=== PATIENT | male | born 1965 | race African-American/Black ===

== ENCOUNTER 2020-03-27 12:30 | Inpatient (IN) | payer OTHER ==
--- NOTE | 2020-03-27 12:50 | BHS.RME ---
Substance Use & Tx History - Substance Use History Alcohol Substance amount: 6 x 24 ounce beer daily, one pint rum less than 3 days per week Frequency of use: Daily Substance route: Oral Date of Last Use: 03/27/20 Cocaine-Crack Substance amount: 2 bags Frequency of use: Daily Substance route: Smoking Date of Last Use: 03/26/20 Nicotine Substance amount: 3 cigs Frequency of use: Daily Substance route: Smoking Date of Last Use: 03/27/20 - Last Treatment Date of last treatment: first PC Physical/Psych/Mental Status - Behavior General Behavior: Increased activity (restlessness, agitation) Eye Contact: Normal - Cooperativeness Cooperativeness: Cooperative - Thinking Thought Processes: Tight Thought content: Future oriented - Physical Health Problems Is patient presently having any pain?: Yes (right shoulder pain for 3 mos) Does patient presently have any injuries (include location): No Does patient currently have a fever: No CIWA Nausea/Vomitin-Mild Nausea/No Vomiting Muscle Tremors: 3 Anxiety: 3 Agitation: 1-Slight > Activity Paroxysmal Sweats: 1-Minimal Palms Moist Orientation: 2-Disoriented Date<2 days Tacttile Disturbances: 0-None Auditory Disturbances: 1-Very Mild Visual Disturbances: 0-None Headache: 0-None Present CIWA-Ar Total Score: 12
[2020-03-27 13:33] VITALS: BMI 24.0
--- NOTE | 2020-03-27 13:45 | HP ---
CIWA Score Nausea/Vomitin-Mild Nausea/No Vomiting Muscle Tremors: 3 Anxiety: 3 Agitation: 1-Slight > Activity Paroxysmal Sweats: 1-Minimal Palms Moist Orientation: 2-Disoriented Date<2 days Tacttile Disturbances: 0-None Auditory Disturbances: 1-Very Mild Visual Disturbances: 0-None Headache: 0-None Present CIWA-Ar Total Score: 12 - Admission Criteria [facility] Guidelines: Admission for Medically Managed Detox: Requires at least one of the followin. CIWA greater than 12 2. Seizures within the past 24 hours 3. Delirium tremens within the past 24 hours 4. Hallucinations within the past 24 hours 5. Acute intervention needed for co occurring medical disorder 6. Acute intervention needed for co occurring psychiatric disorder 7. Severe withdrawal that cannot be handled at a lower level of care (continued vomiting, continued diarrhea, abnormal vital signs) requiring intravenous medication and/or fluids 8. Patient presents the following: CIWA greater than 12 Admission Criteria Met: Admission criteria met Admitting History and Physical - Admission Chief Complaint: alcohol detox - Past Medical History Endocrine: Yes: Diabetes Mellitus (does not use meds) - Smoking History Smoking history: Current every day smoker Aproximately how many cigarettes per day: 4 Admission ROS S - HPI Chief Complaint: alcohol detox and cocaine use Allergies/Adverse Reactions: Allergies Allergy/AdvReac Type Severity Reaction Status Date / Time No Known Allergies Allergy Verified 03/27/20 13:00 History of Present Illness: 55 yo with c/o R shoulder pain (fell 3 months ago), says was told he had diabetes in the past but has not used medications, would like to be abstinent from alcohol and cocaine use. alcohol use: 1-6 packs of beer, no h/o seizures no h/o DT's THC- 1 bag/day crack/cocaine- 2-3 rocks a day ($60/day) KALYANI- 0 Utox: THC and siddharth - Review of Systems Constitutional: No Symptoms Reported EENT: reports: No Symptoms Reported Respiratory: reports: No Symptoms reported Cardiac: reports: No Symptoms Reported GI: reports: No Symptoms Reported Musculoskeletal: reports: Other (r shoulder pain- says has difficulty lifting arm up, says he had trauma about 3 months ago) Integumentary: reports: No Symptoms Reported Neuro: reports: No Symptoms reported Endocrine: reports: No Symptoms Reported Hematology: reports: No Symptoms Reported Psychiatric: reports: No Sypmtoms Reported Patient History - Patient Medical History Hx Asthma: No Hx Chronic Obstructive Pulmonary Disease (COPD): No Hx Cardiac Disorders: No Hx Hypertension: No Hx Seizures: No Hx Diabetes: Yes (in the past does not use meds) Hx Gastrointestinal Disorders: No Hx Genitourinary Disorders: No Hx Sexually Transmitted Disorders: No Hx Renal Disease (ESRD): No Hx Depression: No Hx Schizophrenia: No - Patient Surgical History Past Surgical History: No Hx Neurologic Surgery: No Hx Cataract Extraction: No Hx Cardiac Surgery: No Hx Lung Surgery: No Hx Breast Surgery: No Hx Breast Biopsy: No Hx Abdominal Surgery: No Hx Appendectomy: No Hx Cholecystectomy: No Hx Genitourinary Surgery: No Hx Section: No Hx Orthopedic Surgery: Yes (left forearm and numerous fx., ) Anesthesia Reaction: No - Reproductive History Patient : (n/a) - Smoking Cessation Smoking history: Current every day smoker Aproximately how many cigarettes per day: 4 Cigars Per Day: 0 Hx Chewing Tobacco Use: No Initiated information on smoking cessation: Yes 'Breaking Loose' booklet given: 03/27/20 - Substance & Tx. History Hx Alcohol Use: Yes Substance Use Type: Alcohol, Cocaine - Substances abused Alcohol Substance route: Oral Frequency: Daily Age of first use: 30 Date of last use: 03/26/20 Cocaine Substance route: Smoking Frequency: Daily Admission Physical Exam BHS - Vital Signs Vital Signs: Vital Signs - 24 hr 03/27/20 13:29 Temperature 98 F Pulse Rate 94 H Respiratory 20 Rate Blood Pressure 144/95 - Physical General Appearance: Yes: Within Normal Limits HEENTM: Yes: Within Normal Limits Respiratory: Yes: Within Normal Limits Neck: Yes: Within Normal Limits Cardiology: Yes: Within Normal Limits, Regular Rhythm Abdominal: Yes: Within Normal Limits, Non Tender, Flat Genitourinary: Yes: Within Normal Limits Back: Yes: Within Normal Limits Musculoskeletal: Yes: Other (R shoulder pain when lifting arm and pain on top of R shoulder with palpation. no swelling, redness) Extremities: Yes: Within Normal Limits Neurological: Yes: Within Normal Limits Integumentary: Yes: Within Normal Limits - Diagnostic (1) Alcohol use disorder Current Visit: Yes Status: Acute (2) Cocaine use disorder Current Visit: Yes Status: Acute (3) Shoulder pain, right Current Visit: Yes Status: Acute Breathalyzer - Breathalyzer Breathalyzer: 0 Urine Drug Screen - Test Device Lot number: [id number] Expiration date: 10/09/21 - Control Is test valid?: Yes - Results Drug screen NEGATIVE: No Urine drug screen results: THC-Marijuana, SIDDHARTH-Cocaine Inpatient Rehab Admission - Rehab Decision to Admit Inpatient rehab admission?: No
[2020-03-27] MEDS ORDERED: ONDANSETRON *ODT* 4 MG TABLET SL PRN (13:54)
[2020-03-27] MEDS ORDERED: MAGNESIUM HYDROX 2400MG/30ML ORAL SUSPENSION 30 ML CUP PO PRN (13:54)
[2020-03-27] MEDS ORDERED: IBUPROFEN 400 MG TABLET (FP) PO PRN (13:54)
[2020-03-27] MEDS ORDERED: BISMUTH SUBSALICYLATE 262 MG/15 ML BTL PO PRN (13:54)
[2020-03-27] MEDS ORDERED: MAG HYDROX/AL HYDROX/SIMETH 30 ML UNIT-DOSE CUP PO PRN (13:54)
[2020-03-27] MEDS ORDERED: MAGNESIUM CITRATE 300 ML BOTTLE PO PRN (13:54)
[2020-03-27] MEDS ORDERED: ACETAMINOPHEN 325 MG TABLET (FP) PO PRN ×2 (13:54)
[2020-03-27] MEDS ORDERED: MENTHOL/PHENOL 1 EACH UD MM PRN (13:54)
[2020-03-27] MEDS ORDERED: NICOTINE POLACRILEX 2 MG GUM BUC PRN (13:54)
[2020-03-27] MEDS ORDERED: chlordiazePOXIDE HCL 25 MG CAPSULE PO PRN (13:57)
[2020-03-27] MEDS ORDERED: hydrOXYzine PAMOATE 25 MG CAPSULE (FP) PO SCH (14:00)
[2020-03-27] MEDS: chlordiazePOXIDE HCL 25 MG CAPSULE PO SCH ×2 (18:11→22:47)
[2020-03-27] MEDS ORDERED: INSULIN (NOVOLOG) ASPART 100 UNITS/ML 10ML VIAL SQ ONE (18:15)
[2020-03-27] MEDS: MELATONIN 5 MG TABLETS PO SCH (22:47)
[2020-03-27] MEDS: THIAMINE HCL 100 MG TABLET (FP) PO SCH (22:47)
[2020-03-27] MEDS: INSULIN SLIDING SCALE (NOVOLOG) 1 VIAL SQ SCH (22:50)
[2020-03-28] MEDS: chlordiazePOXIDE HCL 25 MG CAPSULE PO SCH (06:03)
[2020-03-28] MEDS: metFORMIN HCL 500 MG TABLET (FP) PO SCH (06:04)
[2020-03-28] MEDS: INSULIN SLIDING SCALE (NOVOLOG) 1 VIAL SQ SCH ×4 (08:01→22:35)
[2020-03-28] MEDS ORDERED: diazePAM 5 MG TABLET PO PRN (10:05)
[2020-03-28 10:19] LABS: HEMOGLOBIN 16.6 GM/dL (11.7-16.9); MCH 31.2 pg (25.7-33.7); MCHC 33.8 g/dl (32.0-35.9); MEAN CELL VOLUME 92.1 fl (80-96); MEAN PLT VOLUME 8.1 fl (7.5-11.1); PLATELET COUNT 344 K/MM3 (134-434); RBC 5.32 M/mm3 (4.00-5.60); RDW 13.8 % (11.9-15.9); WHITE BLOOD COUNT 8.8 K/mm3 (4.0-10.0)
[2020-03-28 10:22] LABS: ALBUMIN 3.8 g/dl (3.4-5.0); BLOOD UREA NITROGEN 17.7 mg/dL (7-18); CALCIUM 10.2 mg/dL (8.5-10.1); CREATININE 1.1 mg/dL (0.55-1.3); POTASSIUM 4.4 mmol/L (3.5-5.1)
[2020-03-28 10:24] LABS: BILIRUBIN,TOTAL 1.1 mg/dL (0.2-1); TOT PROT 7.6 g/dl (6.4-8.2)
--- NOTE | 2020-03-28 10:32 | EKG ---
Test Reason : Blood Pressure : / mmHG Vent. Rate : 090 BPM Atrial Rate : 090 BPM P-R Int : 174 ms QRS Dur : 100 ms QT Int : 364 ms P-R-T Axes : 068 068 026 degrees QTc Int : 445 ms NORMAL SINUS RHYTHM NONSPECIFIC INTRAVENTRICULAR CONDUCTION DEFECT NO PREVIOUS ECGS AVAILABLE Confirmed by ZAHIRA DE LA ROSA MD ([id number]) on 03/28/2020 10:31:49 AM Referred By: Confirmed By:ZAHIRA DE LA ROSA MD
[2020-03-28] MEDS: PRENATAL VITAMINS W/ FOLIC ACID TABLET (FP) PO SCH (10:56)
[2020-03-28] MEDS: LIDOCAINE 5% TOPICAL PATCH TP SCH (10:56)
[2020-03-28] MEDS: METHOCARBAMOL 500 MG TABLET PO PRN (13:56)
[2020-03-28] MEDS: IBUPROFEN 400 MG TABLET (FP) PO PRN ×2 (13:56→22:36)
--- NOTE | 2020-03-28 15:02 | PN ---
[facility] CIWA - CIWA Score Nausea/Vomitin-No Nausea/No Vomiting Muscle Tremors: 3 Anxiety: 2 Agitation: 3 Paroxysmal Sweats: 3 Orientation: 0-Oriented Tacttile Disturbances: 0-None Auditory Disturbances: 0-None Visual Disturbances: 0-None Headache: 0-None Present CIWA-Ar Total Score: 11 S Progress Note (SOAP) Subjective: the medication is making me feel more drunk sweats dizzy groggy sleepy my right shoulder is really hurting, I fell months ago and never went to hospital to get it checked out. Objective: 03/28/20 15:02 Vital Signs Temperature 97.8 F 03/28/20 12:31 Pulse Rate 91 H 03/28/20 12:31 Respiratory Rate 18 03/28/20 12:31 Blood Pressure 127/83 03/28/20 12:31 O2 Sat by Pulse Oximetry (%) 98 03/28/20 12:31 Laboratory Tests 03/27/20 03/27/20 03/28/20 16:56 22:46 06:02 WBC RBC Hgb Hct MCV MCH MCHC RDW Plt Count MPV Sodium Potassium Chloride Carbon Dioxide Anion Gap BUN Creatinine Est GFR (CKD-EPI)AfAm Est GFR (CKD-EPI)NonAf POC Glucometer 409 302 196 Random Glucose Calcium Total Bilirubin AST ALT Alkaline Phosphatase Total Protein Albumin Syphilis Serology HIV Ag/Ab Combo Qual 03/28/20 03/28/20 03/28/20 08:00 08:00 08:00 WBC 8.8 RBC 5.32 Hgb 16.6 Hct 49.0 MCV 92.1 MCH 31.2 MCHC 33.8 RDW 13.8 Plt Count 344 MPV 8.1 Sodium Potassium Chloride Carbon Dioxide Anion Gap BUN Creatinine Est GFR (CKD-EPI)AfAm Est GFR (CKD-EPI)NonAf POC Glucometer Random Glucose Calcium Total Bilirubin AST ALT Alkaline Phosphatase Total Protein Albumin Syphilis Serology Non-reactive HIV Ag/Ab Combo Qual Negative 03/28/20 08:00 WBC RBC Hgb Hct MCV MCH MCHC RDW Plt Count MPV Sodium 136 Potassium 4.4 Chloride 99 Carbon Dioxide 29 Anion Gap 7 L BUN 17.7 Creatinine 1.1 Est GFR (CKD-EPI)AfAm 87.13 Est GFR (CKD-EPI)NonAf 75.17 POC Glucometer Random Glucose 306 H Calcium 10.2 H Total Bilirubin 1.1 H AST 10 L ALT 13 Alkaline Phosphatase 111 Total Protein 7.6 Albumin 3.8 Syphilis Serology HIV Ag/Ab Combo Qual labs noted aaox3 ambulating no acute distress pt is currently on insulin s/s and hyperglycemia medication Assessment: 03/28/20 15:05 withdrawals pt is able to shrug shoulders, pt is unable to raise arm over his head. no swelling noted to shoulder area Plan: continue detox with different regimen pt made aware and in agreement shoulder x-ray ordered r/o fracture analgesic balm motrin 800mg prn
[2020-03-28] MEDS: diazePAM 5 MG TABLET PO SCH ×2 (17:40→22:36)
[2020-03-28] MEDS: NICOTINE 14 MG/24 HOURS TOPICAL PATCH TD SCH (17:44)
[2020-03-28] MEDS: THIAMINE HCL 100 MG TABLET (FP) PO SCH (22:36)
[2020-03-28] MEDS: LIDOCAINE PATCH REMOVAL MC SCH (22:38)
[2020-03-28] MEDS: MELATONIN 5 MG TABLETS PO SCH (22:38)
[2020-03-29] MEDS ORDERED: chlordiazePOXIDE HCL 25 MG CAPSULE PO SCH (05:00)
[2020-03-29] MEDS: diazePAM 5 MG TABLET PO SCH ×4 (07:44→22:37)
[2020-03-29] MEDS: metFORMIN HCL 500 MG TABLET (FP) PO SCH (07:44)
[2020-03-29] MEDS: INSULIN SLIDING SCALE (NOVOLOG) 1 VIAL SQ SCH ×4 (07:46→22:37)
[2020-03-29] MEDS ORDERED: INSULIN SLIDING SCALE (NOVOLOG) 1 VIAL SQ ONE (07:47)
[2020-03-29] MEDS ORDERED: NICOTINE 14 MG/24 HOURS TOPICAL PATCH TD SCH (10:00)
[2020-03-29] MEDS: LIDOCAINE 5% TOPICAL PATCH TP SCH (11:37)
[2020-03-29] MEDS: PRENATAL VITAMINS W/ FOLIC ACID TABLET (FP) PO SCH (11:38)
[2020-03-29] MEDS: METHOCARBAMOL 500 MG TABLET PO PRN ×2 (11:38→17:39)
[2020-03-29] MEDS: NICOTINE 14 MG/24 HOURS TOPICAL PATCH TD SCH (11:39)
--- NOTE | 2020-03-29 17:49 | PN ---
S CIWA - CIWA Score Nausea/Vomitin-No Nausea/No Vomiting Muscle Tremors: 2 Anxiety: 3 Agitation: 2 Paroxysmal Sweats: No Perspiration Orientation: 0-Oriented Tacttile Disturbances: 0-None Auditory Disturbances: 0-None Visual Disturbances: 2-Mild Sensitivity Headache: 0-None Present CIWA-Ar Total Score: 9 BHS Progress Note (SOAP) Subjective: Fatigue (diminishing), Anxious, Body Aches. Patient reports That Current withdrawal Detox Symptoms in General Are Gradually Beginning to Diminish in Severity. Objective: Patient A & O X 3, Observed Ambulating on Detox Unit Unassisted. In No Acute Distress. 03/29/20 17:47 Vital Signs Temperature 97.9 F 03/29/20 12:55 Pulse Rate 85 03/29/20 12:55 Respiratory Rate 16 03/29/20 12:55 Blood Pressure 128/81 03/29/20 12:55 O2 Sat by Pulse Oximetry (%) 97 03/29/20 12:55 Laboratory Tests 03/27/20 03/27/20 03/27/20 08:00 16:56 22:46 WBC RBC Hgb Hct MCV MCH MCHC RDW Plt Count MPV Sodium Potassium Chloride Carbon Dioxide Anion Gap BUN Creatinine Est GFR (CKD-EPI)AfAm Est GFR (CKD-EPI)NonAf POC Glucometer 409 302 Random Glucose Calcium Total Bilirubin AST ALT Alkaline Phosphatase Total Protein Albumin Syphilis Serology COVID-19 ([facility]) Not detected HIV Ag/Ab Combo Qual 03/28/20 03/28/20 03/28/20 06:02 08:00 08:00 WBC RBC Hgb Hct MCV MCH MCHC RDW Plt Count MPV Sodium Potassium Chloride Carbon Dioxide Anion Gap BUN Creatinine Est GFR (CKD-EPI)AfAm Est GFR (CKD-EPI)NonAf POC Glucometer 196 Random Glucose Calcium Total Bilirubin AST ALT Alkaline Phosphatase Total Protein Albumin Syphilis Serology Non-reactive COVID-19 ([facility]) HIV Ag/Ab Combo Qual Negative 03/28/20 03/28/20 03/28/20 08:00 08:00 16:32 WBC 8.8 RBC 5.32 Hgb 16.6 Hct 49.0 MCV 92.1 MCH 31.2 MCHC 33.8 RDW 13.8 Plt Count 344 MPV 8.1 Sodium 136 Potassium 4.4 Chloride 99 Carbon Dioxide 29 Anion Gap 7 L BUN 17.7 Creatinine 1.1 Est GFR (CKD-EPI)AfAm 87.13 Est GFR (CKD-EPI)NonAf 75.17 POC Glucometer 493 Random Glucose 306 H Calcium 10.2 H Total Bilirubin 1.1 H AST 10 L ALT 13 Alkaline Phosphatase 111 Total Protein 7.6 Albumin 3.8 Syphilis Serology COVID-19 ([facility]) HIV Ag/Ab Combo Qual 03/28/20 03/29/20 03/29/20 22:31 07:43 11:41 WBC RBC Hgb Hct MCV MCH MCHC RDW Plt Count MPV Sodium Potassium Chloride Carbon Dioxide Anion Gap BUN Creatinine Est GFR (CKD-EPI)AfAm Est GFR (CKD-EPI)NonAf POC Glucometer 307 251 368 Random Glucose Calcium Total Bilirubin AST ALT Alkaline Phosphatase Total Protein Albumin Syphilis Serology COVID-19 ([facility]) HIV Ag/Ab Combo Qual 03/29/20 16:45 WBC RBC Hgb Hct MCV MCH MCHC RDW Plt Count MPV Sodium Potassium Chloride Carbon Dioxide Anion Gap BUN Creatinine Est GFR (CKD-EPI)AfAm Est GFR (CKD-EPI)NonAf POC Glucometer 251 Random Glucose Calcium Total Bilirubin AST ALT Alkaline Phosphatase Total Protein Albumin Syphilis Serology COVID-19 ([facility]) HIV Ag/Ab Combo Qual Lab Results noted. Assessment: 03/29/20 17:48 WITHDRAWAL SYMPTOMS. Plan: Continue Detox.
[2020-03-29] MEDS: THIAMINE HCL 100 MG TABLET (FP) PO SCH (22:36)
[2020-03-29] MEDS: MELATONIN 5 MG TABLETS PO SCH (22:37)
[2020-03-29] MEDS: LIDOCAINE PATCH REMOVAL MC SCH (22:37)
[2020-03-30] MEDS ORDERED: chlordiazePOXIDE HCL 10 MG CAPSULE PO PRN
[2020-03-30] MEDS ORDERED: chlordiazePOXIDE HCL 10 MG CAPSULE PO SCH (05:00)
[2020-03-30] MEDS: diazePAM 5 MG TABLET PO SCH ×3 (06:24→22:11)
[2020-03-30] MEDS: metFORMIN HCL 500 MG TABLET (FP) PO SCH (06:24)
[2020-03-30] MEDS: METHOCARBAMOL 500 MG TABLET PO PRN ×2 (06:26→22:15)
[2020-03-30] MEDS: INSULIN SLIDING SCALE (NOVOLOG) 1 VIAL SQ SCH ×4 (07:52→22:12)
[2020-03-30] MEDS: LIDOCAINE 5% TOPICAL PATCH TP SCH (10:46)
[2020-03-30] MEDS: NICOTINE 14 MG/24 HOURS TOPICAL PATCH TD SCH (10:46)
[2020-03-30] MEDS: PRENATAL VITAMINS W/ FOLIC ACID TABLET (FP) PO SCH (10:46)
--- NOTE | 2020-03-30 12:56 | PN ---
S CIWA - CIWA Score Nausea/Vomitin-No Nausea/No Vomiting Muscle Tremors: 2 Anxiety: 2 Agitation: 2 Paroxysmal Sweats: 2 Orientation: 0-Oriented Tacttile Disturbances: 0-None Auditory Disturbances: 0-None Visual Disturbances: 0-None Headache: 0-None Present CIWA-Ar Total Score: 8 BHS Progress Note (SOAP) Subjective: Complaints of sweat, tremors and anxiety. Objective: Vital Signs 03/30/20 03/30/20 06:12 08:33 Temperature 96.0 F L 97.7 F Pulse Rate 83 88 Respiratory 16 16 Rate Blood Pressure 139/97 127/87 O2 Sat by Pulse 97 Oximetry (%) Laboratory Last Values WBC 8.8 K/mm3 (4.0-10.0) 03/28/20 08:00 RBC 5.32 M/mm3 (4.00-5.60) 03/28/20 08:00 Hgb 16.6 GM/dL (11.7-16.9) 03/28/20 08:00 Hct 49.0 % (35.4-49) 03/28/20 08:00 MCV 92.1 fl (80-96) 03/28/20 08:00 MCH 31.2 pg (25.7-33.7) 03/28/20 08:00 MCHC 33.8 g/dl (32.0-35.9) 03/28/20 08:00 RDW 13.8 % (11.9-15.9) 03/28/20 08:00 Plt Count 344 K/MM3 (134-434) 03/28/20 08:00 MPV 8.1 fl (7.5-11.1) 03/28/20 08:00 Sodium 136 mmol/L (136-145) 03/28/20 08:00 Potassium 4.4 mmol/L (3.5-5.1) 03/28/20 08:00 Chloride 99 mmol/L (98-107) 03/28/20 08:00 Carbon Dioxide 29 mmol/L (21-32) 03/28/20 08:00 Anion Gap 7 MMOL/L (8-16) L 03/28/20 08:00 BUN 17.7 mg/dL (7-18) 03/28/20 08:00 Creatinine 1.1 mg/dL (0.55-1.3) 03/28/20 08:00 Est GFR (CKD-EPI)AfAm 87.13 03/28/20 08:00 Est GFR (CKD-EPI)NonAf 75.17 03/28/20 08:00 POC Glucometer 362 UNITS (80-120) 03/30/20 10:49 Random Glucose 306 mg/dL (74-106) H 03/28/20 08:00 Calcium 10.2 mg/dL (8.5-10.1) H 03/28/20 08:00 Total Bilirubin 1.1 mg/dL (0.2-1) H 03/28/20 08:00 AST 10 U/L (15-37) L 03/28/20 08:00 ALT 13 U/L (13-61) 03/28/20 08:00 Alkaline Phosphatase 111 U/L (45-117) 03/28/20 08:00 Total Protein 7.6 g/dl (6.4-8.2) 03/28/20 08:00 Albumin 3.8 g/dl (3.4-5.0) 03/28/20 08:00 Syphilis Serology Non-reactive (NONREACTIVE) 03/28/20 08:00 COVID-19 ([facility]) Not detected (Not Detected) 03/27/20 08:00 HIV Ag/Ab Combo Qual Negative (NEGATIVE) 03/28/20 08:00 Labs noted with hyperglycemia. Assessment: 03/30/20 12:54 Alert and oriented x3, in no acute respiratory distress. Full ROM, ambulatory in the unit without assistance. Skin warm to touch. Withdrawal symptoms. Hyperglycemia Plan: Continue detox protocol Increase fluid intake Continue BGM with Insulin sliding scale and Metformin.
[2020-03-30] MEDS: THIAMINE HCL 100 MG TABLET (FP) PO SCH (22:11)
[2020-03-30] MEDS: LIDOCAINE PATCH REMOVAL MC SCH (23:07)
[2020-03-30] MEDS: MELATONIN 5 MG TABLETS PO SCH (23:07)
[2020-03-31] MEDS ORDERED: chlordiazePOXIDE HCL 10 MG CAPSULE PO SCH (05:00)
[2020-03-31] MEDS: metFORMIN HCL 500 MG TABLET (FP) PO SCH (06:10)
[2020-03-31] MEDS: diazePAM 5 MG TABLET PO SCH ×2 (06:12→18:02)
[2020-03-31] MEDS: INSULIN SLIDING SCALE (NOVOLOG) 1 VIAL SQ SCH ×4 (06:12→22:31)
[2020-03-31] MEDS: METHOCARBAMOL 500 MG TABLET PO PRN ×2 (10:18→22:29)
[2020-03-31] MEDS: PRENATAL VITAMINS W/ FOLIC ACID TABLET (FP) PO SCH (10:19)
[2020-03-31] MEDS: NICOTINE 14 MG/24 HOURS TOPICAL PATCH TD SCH (10:19)
[2020-03-31] MEDS: LIDOCAINE 5% TOPICAL PATCH TP SCH (10:20)
--- NOTE | 2020-03-31 10:25 | PN ---
S CIWA - CIWA Score Nausea/Vomitin-No Nausea/No Vomiting Muscle Tremors: 1-None Visible, but [place] Anxiety: 1-Mildly Anxious Agitation: 0-Normal Activity Paroxysmal Sweats: No Perspiration Orientation: 0-Oriented Tacttile Disturbances: 0-None Auditory Disturbances: 0-None Visual Disturbances: 0-None Headache: 0-None Present CIWA-Ar Total Score: 2 BHS Progress Note (SOAP) Subjective: feeling better Objective: 03/31/20 10:24 Vital Signs Temperature 97.7 F 03/31/20 06:00 Pulse Rate 77 03/31/20 06:00 Respiratory Rate 16 03/31/20 06:00 Blood Pressure 125/79 03/31/20 06:00 O2 Sat by Pulse Oximetry (%) 93 L 03/31/20 06:00 Laboratory Tests 03/27/20 03/27/20 03/27/20 08:00 16:56 22:46 WBC RBC Hgb Hct MCV MCH MCHC RDW Plt Count MPV Sodium Potassium Chloride Carbon Dioxide Anion Gap BUN Creatinine Est GFR (CKD-EPI)AfAm Est GFR (CKD-EPI)NonAf POC Glucometer 409 302 Random Glucose Calcium Total Bilirubin AST ALT Alkaline Phosphatase Total Protein Albumin Syphilis Serology COVID-19 ([facility]) Not detected HIV Ag/Ab Combo Qual 03/28/20 03/28/20 03/28/20 06:02 08:00 08:00 WBC RBC Hgb Hct MCV MCH MCHC RDW Plt Count MPV Sodium Potassium Chloride Carbon Dioxide Anion Gap BUN Creatinine Est GFR (CKD-EPI)AfAm Est GFR (CKD-EPI)NonAf POC Glucometer 196 Random Glucose Calcium Total Bilirubin AST ALT Alkaline Phosphatase Total Protein Albumin Syphilis Serology Non-reactive COVID-19 ([facility]) HIV Ag/Ab Combo Qual Negative 03/28/20 03/28/20 03/28/20 08:00 08:00 16:32 WBC 8.8 RBC 5.32 Hgb 16.6 Hct 49.0 MCV 92.1 MCH 31.2 MCHC 33.8 RDW 13.8 Plt Count 344 MPV 8.1 Sodium 136 Potassium 4.4 Chloride 99 Carbon Dioxide 29 Anion Gap 7 L BUN 17.7 Creatinine 1.1 Est GFR (CKD-EPI)AfAm 87.13 Est GFR (CKD-EPI)NonAf 75.17 POC Glucometer 493 Random Glucose 306 H Calcium 10.2 H Total Bilirubin 1.1 H AST 10 L ALT 13 Alkaline Phosphatase 111 Total Protein 7.6 Albumin 3.8 Syphilis Serology COVID-19 ([facility]) HIV Ag/Ab Combo Qual 03/28/20 03/29/20 03/29/20 22:31 07:43 11:41 WBC RBC Hgb Hct MCV MCH MCHC RDW Plt Count MPV Sodium Potassium Chloride Carbon Dioxide Anion Gap BUN Creatinine Est GFR (CKD-EPI)AfAm Est GFR (CKD-EPI)NonAf POC Glucometer 307 251 368 Random Glucose Calcium Total Bilirubin AST ALT Alkaline Phosphatase Total Protein Albumin Syphilis Serology COVID-19 ([facility]) HIV Ag/Ab Combo Qual 03/29/20 03/29/20 03/30/20 16:45 21:36 06:24 WBC RBC Hgb Hct MCV MCH MCHC RDW Plt Count MPV Sodium Potassium Chloride Carbon Dioxide Anion Gap BUN Creatinine Est GFR (CKD-EPI)AfAm Est GFR (CKD-EPI)NonAf POC Glucometer 251 293 298 Random Glucose Calcium Total Bilirubin AST ALT Alkaline Phosphatase Total Protein Albumin Syphilis Serology COVID-19 ([facility]) HIV Ag/Ab Combo Qual 03/30/20 03/30/20 03/30/20 10:49 16:47 21:37 WBC RBC Hgb Hct MCV MCH MCHC RDW Plt Count MPV Sodium Potassium Chloride Carbon Dioxide Anion Gap BUN Creatinine Est GFR (CKD-EPI)AfAm Est GFR (CKD-EPI)NonAf POC Glucometer 362 343 439 Random Glucose Calcium Total Bilirubin AST ALT Alkaline Phosphatase Total Protein Albumin Syphilis Serology COVID-19 ([facility]) HIV Ag/Ab Combo Qual 03/31/20 06:10 WBC RBC Hgb Hct MCV MCH MCHC RDW Plt Count MPV Sodium Potassium Chloride Carbon Dioxide Anion Gap BUN Creatinine Est GFR (CKD-EPI)AfAm Est GFR (CKD-EPI)NonAf POC Glucometer 122 Random Glucose Calcium Total Bilirubin AST ALT Alkaline Phosphatase Total Protein Albumin Syphilis Serology COVID-19 ([facility]) HIV Ag/Ab Combo Qual labs noted aaox3 ambulating no acute distress Assessment: 03/31/20 10:25 withdrawals Plan: continue detox d/c in am
[2020-03-31] MEDS ORDERED: INSULIN SLIDING SCALE (NOVOLOG) 1 VIAL SQ ONE ×2 (16:50→22:00)
[2020-03-31] MEDS: IBUPROFEN 400 MG TABLET (FP) PO PRN (22:29)
[2020-03-31] MEDS: THIAMINE HCL 100 MG TABLET (FP) PO SCH (22:29)
[2020-03-31] MEDS: hydrOXYzine PAMOATE 25 MG CAPSULE (FP) PO PRN (22:29)
[2020-03-31] MEDS: MELATONIN 5 MG TABLETS PO SCH (22:30)
[2020-03-31] MEDS: LIDOCAINE PATCH REMOVAL MC SCH (22:30)
[2020-04-01] MEDS ORDERED: chlordiazePOXIDE HCL 10 MG CAPSULE PO ONE (05:00)
[2020-04-01 05:45] VITALS: BP 127/95; PULSE 79; TEMP 97.7
[2020-04-01] MEDS ORDERED: diazePAM 5 MG TABLET PO ONE (06:00)
[2020-04-01] MEDS: hydrOXYzine PAMOATE 25 MG CAPSULE (FP) PO PRN (07:03)
[2020-04-01] MEDS: metFORMIN HCL 500 MG TABLET (FP) PO SCH (07:07)
[2020-04-01] MEDS ORDERED: INSULIN SLIDING SCALE (NOVOLOG) 1 VIAL SQ ONE (07:08)
[2020-04-01] MEDS: INSULIN SLIDING SCALE (NOVOLOG) 1 VIAL SQ SCH (07:09)
--- NOTE | 2020-04-01 09:07 | DS ---
[facility] Detox Discharge Summary Admission Date: 03/27/20 Discharge Date: 04/01/20 - History Present History: Alcohol Dependence, Cocaine Dependence - Physical Exam Results Vital Signs: Vital Signs Temperature 97.7 F 04/01/20 05:19 Pulse Rate 79 04/01/20 05:19 Respiratory Rate 04/01/20 05:19 Blood Pressure 127/95 04/01/20 05:19 O2 Sat by Pulse Oximetry (%) 99 04/01/20 05:19 Pertinent Admission Physical Exam Findings: Vital Signs Temperature 97.7 F 04/01/20 05:19 Pulse Rate 79 04/01/20 05:19 Respiratory Rate 04/01/20 05:19 Blood Pressure 127/95 04/01/20 05:19 O2 Sat by Pulse Oximetry (%) 99 04/01/20 05:19 Laboratory Tests 03/27/20 03/27/20 03/27/20 08:00 16:56 22:46 WBC RBC Hgb Hct MCV MCH MCHC RDW Plt Count MPV Sodium Potassium Chloride Carbon Dioxide Anion Gap BUN Creatinine Est GFR (CKD-EPI)AfAm Est GFR (CKD-EPI)NonAf POC Glucometer 409 302 Random Glucose Calcium Total Bilirubin AST ALT Alkaline Phosphatase Total Protein Albumin Syphilis Serology COVID-19 ([facility]) Not detected HIV Ag/Ab Combo Qual 03/28/20 03/28/20 03/28/20 06:02 08:00 08:00 WBC RBC Hgb Hct MCV MCH MCHC RDW Plt Count MPV Sodium Potassium Chloride Carbon Dioxide Anion Gap BUN Creatinine Est GFR (CKD-EPI)AfAm Est GFR (CKD-EPI)NonAf POC Glucometer 196 Random Glucose Calcium Total Bilirubin AST ALT Alkaline Phosphatase Total Protein Albumin Syphilis Serology Non-reactive COVID-19 ([facility]) HIV Ag/Ab Combo Qual Negative 03/28/20 03/28/20 03/28/20 08:00 08:00 16:32 WBC 8.8 RBC 5.32 Hgb 16.6 Hct 49.0 MCV 92.1 MCH 31.2 MCHC 33.8 RDW 13.8 Plt Count 344 MPV 8.1 Sodium 136 Potassium 4.4 Chloride 99 Carbon Dioxide 29 Anion Gap 7 L BUN 17.7 Creatinine 1.1 Est GFR (CKD-EPI)AfAm 87.13 Est GFR (CKD-EPI)NonAf 75.17 POC Glucometer 493 Random Glucose 306 H Calcium 10.2 H Total Bilirubin 1.1 H AST 10 L ALT 13 Alkaline Phosphatase 111 Total Protein 7.6 Albumin 3.8 Syphilis Serology COVID-19 ([facility]) HIV Ag/Ab Combo Qual 03/28/20 03/29/20 03/29/20 22:31 07:43 11:41 WBC RBC Hgb Hct MCV MCH MCHC RDW Plt Count MPV Sodium Potassium Chloride Carbon Dioxide Anion Gap BUN Creatinine Est GFR (CKD-EPI)AfAm Est GFR (CKD-EPI)NonAf POC Glucometer 307 251 368 Random Glucose Calcium Total Bilirubin AST ALT Alkaline Phosphatase Total Protein Albumin Syphilis Serology COVID-19 ([facility]) HIV Ag/Ab Combo Qual 03/29/20 03/29/20 03/30/20 16:45 21:36 06:24 WBC RBC Hgb Hct MCV MCH MCHC RDW Plt Count MPV Sodium Potassium Chloride Carbon Dioxide Anion Gap BUN Creatinine Est GFR (CKD-EPI)AfAm Est GFR (CKD-EPI)NonAf POC Glucometer 251 293 298 Random Glucose Calcium Total Bilirubin AST ALT Alkaline Phosphatase Total Protein Albumin Syphilis Serology COVID-19 ([facility]) HIV Ag/Ab Combo Qual 03/30/20 03/30/20 03/30/20 10:49 16:47 21:37 WBC RBC Hgb Hct MCV MCH MCHC RDW Plt Count MPV Sodium Potassium Chloride Carbon Dioxide Anion Gap BUN Creatinine Est GFR (CKD-EPI)AfAm Est GFR (CKD-EPI)NonAf POC Glucometer 362 343 439 Random Glucose Calcium Total Bilirubin AST ALT Alkaline Phosphatase Total Protein Albumin Syphilis Serology COVID-19 ([facility]) HIV Ag/Ab Combo Qual 03/31/20 03/31/20 03/31/20 06:10 16:41 21:44 WBC RBC Hgb Hct MCV MCH MCHC RDW Plt Count MPV Sodium Potassium Chloride Carbon Dioxide Anion Gap BUN Creatinine Est GFR (CKD-EPI)AfAm Est GFR (CKD-EPI)NonAf POC Glucometer 122 458 329 Random Glucose Calcium Total Bilirubin AST ALT Alkaline Phosphatase Total Protein Albumin Syphilis Serology COVID-19 ([facility]) HIV Ag/Ab Combo Qual 04/01/20 07:04 WBC RBC Hgb Hct MCV MCH MCHC RDW Plt Count MPV Sodium Potassium Chloride Carbon Dioxide Anion Gap BUN Creatinine Est GFR (CKD-EPI)AfAm Est GFR (CKD-EPI)NonAf POC Glucometer 220 Random Glucose Calcium Total Bilirubin AST ALT Alkaline Phosphatase Total Protein Albumin Syphilis Serology COVID-19 ([facility]) HIV Ag/Ab Combo Qual labs noted aaox3 ambulating no acute distress lungs CTA - Treatment Hospital Course: Detox Protocol Followed, Detoxed Safely, Responded well, Discharged Condition Good, Rehab Referral Accepted - Medication Discharge Medications: Ambulatory Orders Metformin HCl [Glucophage] 500 mg PO DAILY 03/27/20 - Diagnosis (1) Alcohol use disorder Current Visit: Yes Status: Acute (2) Cocaine use disorder Current Visit: Yes Status: Acute (3) Shoulder pain, right Current Visit: Yes Status: Acute - AMA Did Patient Leave Against Medical Advice: No
== END 2020-04-01 10:29 | disposition home or self-care (01) | DRG 897 ==
LOC: YASAS 12:30 → Y6N 13:12 → UNDODISIN 04-01 08:43
PROVIDERS: ADMIT Allergy & Immunology; ATTEND Allergy & Immunology
PROC: HZ2ZZZZ Detoxification Services for Substance Abuse Treatment (ICD-10-PCS; principal; 2020-03-27)
DX: F10.20 Alcohol dependence, uncomplicated (principal); F14.20 Cocaine dependence, uncomplicated; F12.20 Cannabis dependence, uncomplicated; E11.65 Type 2 diabetes mellitus with hyperglycemia; F17.210 Nicotine dependence, cigarettes, uncomplicated; M25.511 Pain in right shoulder; W19.XXXD Unspecified fall, subsequent encounter; Z79.84 Long term (current) use of oral hypoglycemic drugs
CPT/HCPCS: 36415; 73030-TC-RT-FY; 80053; 82962; 85027; 86780; 87389; 93005; 93010; U0003